=== PATIENT | male | born 1935 | race Caucasian/White ===

== ENCOUNTER → 2017-05-12 | Outpatient (CLI) | payer MEDICARE, OTHER ==
[~2017-05-12] MED LIST: ASPI1TAB57 PO; MULT-65 PO; TAMS5CAP PO
[2017-05-12 10:19] LABS: AUTOMATED NEUTROPHIL # 3.6 TH/MM3 (1.8-7.7); BASOPHIL % 0.4 % (0.0-2.0); EOSINOPHIL # 0.1 TH/MM3 (0-0.4); HEMATOCRIT 46.9 % (39.0-51.0); HEMOGLOBIN 15.7 GM/DL (13.0-17.0); LYMPH % 23.9 % (9.0-44.0); LYMPHOCYTE # 1.4 TH/MM3 (1.0-4.8); MEAN CELL VOLUME 89.7 FL (80.0-100.0); MEAN CORPUSCULAR HEMOGLOBIN 29.9 PG (27.0-34.0); MEAN CORPUSCULAR HGB CONC 33.3 % (32.0-36.0); MEAN PLATELET VOLUME 7.2 FL (7.0-11.0); MONO % 12.5 % (0.0-8.0); MONOCYTE # 0.7 TH/MM3 (0-0.9); NEUT % 62.2 % (16.0-70.0); PLATELET COUNT 222 TH/MM3 (150-450); RED BLOOD COUNT 5.23 MIL/MM3 (4.50-5.90); RED CELL DISTRIBUTION WIDTH 13.9 % (11.6-17.2); WHITE BLOOD COUNT 5.9 TH/MM3 (4.0-11.0)
[2017-05-12 10:24] LABS: BILIRUBIN, URINE NEG (NEG); BLOOD, URINE NEG (NEG); GLUCOSE,URINE NEG (NEG); HYALINE CAST, URINE 1 /lpf (RARE); KETONE, URINE NEG (NEG); NITRITE,URINE NEG (NEG); PH, URINE 5.5 (5.0-8.5); SQUAMOUS EPITHELIAL CELL URINE <1 /hpf (0-5); URINE COLOR YELLOW (YELLW/STRAW); URINE LEUKOCYTE ESTERASE NEG (NEG)
[2017-05-12 10:32] LABS: PROTHROMBIN TIME - PATIENT 10.2 SEC (9.8-11.6)
[2017-05-12 10:39] LABS: ALBUMIN 3.7 GM/DL (3.4-5.0); AST (GOT) 19 U/L (15-37); BICARBONATE 28.2 MEQ/L (21.0-32.0); BLOOD UREA NITROGEN 12 MG/DL (7-18); CALCIUM 9.1 MG/DL (8.5-10.1); CHLORIDE 104 MEQ/L (98-107); CREATININE 1.12 MG/DL (0.60-1.30); GLOMERULAR FILTRATION RATE 63 ML/MIN (>89); GLUCOSE,FASTING 96 MG/DL (74-99); SODIUM (NA) 141 MEQ/L (136-145)
[2017-05-12 10:45] LABS: ALKALINE PHOSPHATASE 109 U/L (45-117); ALT (GPT) 23 U/L (12-78); TOTAL BILIRUBIN ADULT 0.9 MG/DL (0.2-1.0); TOTAL PROTEIN 7.1 GM/DL (6.4-8.2)
--- NOTE | 2017-05-12 12:07 | RADRPT ---
EXAM DATE/TIME: 05/12/2017 09:59 [place] COMPARISON: No previous studies available for comparison. INDICATIONS : Evaluate for pneumonia, penumothorax, or communicable disease. Pre op for lower anterior resection. MEDICAL HISTORY : None. SURGICAL HISTORY : None. ENCOUNTER: Initial ACUITY: 1 day PAIN SCORE: 0/10 LOCATION: chest FINDINGS: PA and lateral views of the chest demonstrate the lungs to be symmetrically aerated without evidence of mass, infiltrate or effusion. There is hyperaeration bilaterally. There is some minimal platelike scarring versus atelectasis in the left lung base. The cardiomediastinal contours are unremarkable. Osseous structures are intact. CONCLUSION: 1. Minimal scarring versus atelectasis in the left lung base. 2. Otherwise, no focal or acute intrathoracic disease. Frantz Santiago MD on May 12, 2017 at 12:05 Board Certified Radiologist. This report was verified electronically.
--- NOTE | 2017-05-12 20:04 | EKG ---
Date Performed: 05/12/2017 Time Performed: 09:33:10 PTAGE: 81 years EKG: Sinus rhythm WITH OCCASIONAL SUPRAVENTRICULAR PREMATURE COMPLEXES BORDERLINE ECG NO PREVIOUS TRACING DOCTOR: Hunter Singh Interpretating Date/Time 05/12/2017 20:04:01
== END ==
LOC: CPRE 09:00
PROVIDERS: ATTEND Colon & Rectal Surgery
DX: Z01.810 Encounter for preprocedural cardiovascular examination (principal); Z01.811 Encounter for preprocedural respiratory examination; Z01.812 Encounter for preprocedural laboratory examination; Z01.818 Encounter for other preprocedural examination; Z79.01 Long term (current) use of anticoagulants; C18.7 Malignant neoplasm of sigmoid colon; R94.31 Abnormal electrocardiogram [ECG] [EKG]
CPT/HCPCS: 36415; 71046; 80053; 81001; 82378; 85025; 85610; 85730; 93005

== ENCOUNTER 2017-05-19 12:24 | Inpatient (IN) | payer MEDICARE, OTHER ==
[~2017-05-19] VITALS: Ht 182.9 cm; Wt 77.0 kg
[~2017-05-19 12:24] MED LIST changes: +DEXAMETHASONE SOD PHOS 4 MG/ML VIAL IV ONE; +GLYCOPYRROLATE 1 MG/5 ML SYRINGE IV PUSH ONE; +LACTATED RINGER'S 1000 ML INJ 1,000 ML IV ONE; +LIDOCAINE HCL 1% PF 5 ML SYRINGE OTHER ONE; +NEOSTIGMINE 5 MG/5 ML SYRINGE IV PUSH ONE; +ONDANSETRON HCL 4 MG/2 ML VIAL IV ONE; +PROPOFOL 200 MG/20 ML AMP IV ONE; +ROCURONIUM INJ 50 MG/5 ML SYRINGE IV PUSH ONE; +SODIUM CHLOR 0.9% 250 ML INJ 250 ML IV ONE; +ePHEDrine/NS 25 MG/5 ML SYRINGE IV ONE
[2017-05-19] MEDS ORDERED: DEXT 5%-NACL 0.9% 1000 ML INJ 1,000 ML IV SCH (13:00)
[2017-05-19] MEDS ORDERED: METRONIDAZOLE 500 MG/100 ML ISONTONIC SOLN IV SCH (13:00)
[2017-05-19] MEDS ORDERED: POVIDONE IODINE 5% (ANTISEPSIS KIT) 4 APPLICATIONS EACH NARE PRN (13:00)
[2017-05-19] MEDS ORDERED: CHLORHEXIDINE GLUCONATE 2 % 1 PACK (2 CLOTHS) TOPICAL PRN (13:00)
[2017-05-19] MEDS ORDERED: ceFAZolin 1,000 MG/NS 100 ML IV SCH ×2 (13:00)
[2017-05-19] MEDS ORDERED: ALVIMOPAN 12 MG CAPSULE - On Call PO SCH (13:00)
[2017-05-19] MEDS ORDERED: LACTATED RINGER'S 1000 ML IV PRN (13:00)
[2017-05-19] MEDS ORDERED: SODIUM CHLORID 0.9% 500 ML IV PRN (13:00)
[2017-05-19] MEDS ORDERED: METOPROLOL TARTRATE 25 MG TAB PO PRN (13:00)
[2017-05-19] MEDS ORDERED: ACETAMINOPHEN 1000 MG/100 ML 100 ML IV ONE (13:08)
[2017-05-19] MEDS ORDERED: KETAMINE HCL 500 MG/5 ML VIAL ONE (13:08)
[2017-05-19] MEDS ORDERED: MIDAZOLAM HCL 2 MG/2 ML VIAL ONE (13:08)
[2017-05-19] MEDS ORDERED: fentaNYL CITRATE 250 MCG/5 ML AMP ONE (13:33)
--- NOTE | 2017-05-19 13:57 | PD.HP.UP ---
H&P Update Note The Pre-Admit History and Physical Examination regarding the above named patient was reviewed (including, but not limited to, vital signs, heart, lungs, co-morbid conditions), and upon re-examination it is noted that: the patient's condition has not significantly changed since the last examination. Agapito Almeida MD May 19, 2017 13:57
--- NOTE | 2017-05-19 14:57 | PD.OP ---
Operative Report Date of Surgery: May 19, 2017 Preoperative Diagnosis: Colon cancer Postoperative Diagnosis: Same Procedure: Cystoscopy bilateral ureteral catheter placement Anesthesia: ALEYDA Surgeon: Carol Guevara Pharmacy Coordinator(s): None Resident Surgeon: None Operation and Findings: 81-year-old female with history of colon cancer with recurrence. Request for placement of bilateral ureteral catheters were made by Dr. Almeida. Patient was brought to the operating room and placed in dorsal lithotomy position. He was prepped and draped in usual sterile fashion and received preprocedure antibiotics general endotracheal tube anesthesia was administered. 22 Ukrainian cystoscope was inserted in the bladder sarkar cystoscopy did not reveal any abnormalities. The left ureteral orifice was identified and a 5 Ukrainian Demarcus catheter inserted in the left ureteral orifice that difficulty. This was repeated on the right side without difficulty. The Goldstein was then inserted and the catheters were attached a Goldstein. The patient tolerated the procedure well. Carlo Guevara DO May 19, 2017 14:57
[2017-05-19] MEDS ORDERED: BUPIVACAINE HCL PF 0.5% 30 ML VIAL ONE ×3 (15:45)
[2017-05-19] MEDS ORDERED: *MEPERIDINE 25 MG INJ VIAL PERIprocedural Use ONLY ONE (16:26)
[2017-05-19] MEDS ORDERED: *morphine SULFATE 4 MG/ML PERIprocedure ONLY ONE (16:27)
[2017-05-19] MEDS ORDERED: ENALAPRILAT 2.5 MG/2 ML VIAL IV PUSH PRN (16:30)
[2017-05-19] MEDS ORDERED: KETOROLAC TROMETHAMINE 30 MG/ML (IVP) VIAL IVP PRN (16:30)
[2017-05-19] MEDS ORDERED: NALOXONE HCL 0.4 MG/ML AMP IV PUSH PRN (16:30)
[2017-05-19] MEDS ORDERED: POTASSIUM CHLOR 40 MEQ PREMIX 100 ML IV-CENTRAL PRN (16:30)
[2017-05-19] MEDS ORDERED: Post-op Orders (for Pharmacy) XX ONE (16:30)
[2017-05-19] MEDS ORDERED: ACETAMINOPHEN/HYDROcodone 325 MG/5 MG TAB PO PRN (16:30)
[2017-05-19] MEDS ORDERED: ONDANSETRON HCL 4 MG/2 ML VIAL IV PUSH PRN (16:30)
[2017-05-19] MEDS ORDERED: POTASSIUM CHLOR 20 MEQ PREMIX 100 ML IV PRN (16:30)
[2017-05-19] MEDS ORDERED: BENZOCAINE 6 MG/MENTHOL 10 MG LOZENGE BUCCAL PRN (16:30)
[2017-05-19] MEDS ORDERED: ACETAMINOPHEN 325 MG TAB PO PRN (16:30)
[2017-05-19] MEDS ORDERED: METOCLOPRAMIDE HCL 10 MG/2 ML VIAL ONE (16:54)
[2017-05-19] MEDS: D5-NS + KCL 20 MEQ INJ 1,000 ML IV SCH ×2 (17:00→23:06)
[2017-05-19] MEDS: MORPHINE SULFATE 30 MG/30 ML PCA IV SCH (17:09)
[2017-05-19] MEDS ORDERED: MORPHINE SULFATE 4 MG/ML INJ ONE (17:25)
[2017-05-19] MEDS ORDERED: BUPIVACAINE HCL PF 0.5% 30 ML VIAL NB ONE (17:30)
[2017-05-19] MEDS ORDERED: DO NOT ADM ANY ANTICOAGULANT DRUGS PRN (17:45)
[2017-05-19] MEDS: METOCLOPRAMIDE HCL 10 MG/2 ML VIAL IVS SCH (20:18)
[2017-05-19] MEDS: PCA - TOTAL MG MORPHINE DELIVERED PER SHIFT SCH (22:00)
[2017-05-19 23:00] VITALS: BP 134/72; PULSE 88; RESP 16; TEMP 98.1; O2SAT 95
[2017-05-19] MEDS: TAMSULOSIN HCL 0.4 MG CAP PO SCH (23:04)
[2017-05-19] MEDS: metroNIDAZOLE 500 MG INJ 100 ML IV SCH (23:07)
[2017-05-20] VITALS (15 sets, daily range): BP systolic 112–185; BP diastolic 58–74; PULSE 61–83; RESP 16–20; TEMP 98.2–99.1; O2SAT 94–97
[2017-05-20] MEDS: D5-NS + KCL 20 MEQ INJ 1,000 ML IV SCH ×3 (04:26→21:31)
[2017-05-20 05:12] LABS: AUTOMATED NEUTROPHIL # 12.6 TH/MM3 (1.8-7.7); BASOPHIL % 0.1 % (0.0-2.0); HEMATOCRIT 43.8 % (39.0-51.0); HEMOGLOBIN 14.4 GM/DL (13.0-17.0); LYMPH % 2.3 % (9.0-44.0); LYMPHOCYTE # 0.3 TH/MM3 (1.0-4.8); MEAN CELL VOLUME 89.6 FL (80.0-100.0); MEAN CORPUSCULAR HEMOGLOBIN 29.5 PG (27.0-34.0); MEAN CORPUSCULAR HGB CONC 32.9 % (32.0-36.0); MONO % 9.1 % (0.0-8.0); MONOCYTE # 1.3 TH/MM3 (0-0.9); NEUT % 88.5 % (16.0-70.0); PLATELET COUNT 208 TH/MM3 (150-450); RED BLOOD COUNT 4.89 MIL/MM3 (4.50-5.90); RED CELL DISTRIBUTION WIDTH 13.5 % (11.6-17.2); WHITE BLOOD COUNT 14.2 TH/MM3 (4.0-11.0)
[2017-05-20 05:30] LABS: BICARBONATE 22.4 MEQ/L (21.0-32.0); CREATININE 1.18 MG/DL (0.60-1.30)
[2017-05-20] MEDS: PCA - TOTAL MG MORPHINE DELIVERED PER SHIFT SCH ×3 (06:00→21:27)
[2017-05-20] MEDS: metroNIDAZOLE 500 MG INJ 100 ML IV SCH ×2 (06:24→14:02)
--- NOTE | 2017-05-20 07:31 | HHI.PR ---
Subjective Remarks C/R Surg POD#1 afebrile, VSS UO good Objective - Vital Signs Date Time Temp Pulse Resp B/P (MAP) Pulse Ox O2 Delivery O2 Flow Rate FiO2 05/20/17 06:00 16 05/20/17 03:00 98.2 82 112/58 (76) 95 05/19/17 21:00 Nasal Cannula 2 Result Diagram: 05/20/17 0417 05/20/17 0417 Other Results PE alert Abdf - soft, wound dry, min tympany A/P Assessment and Plan Imp: stable post-op OOB decr IVF tx to floor Agapito Almeida MD May 20, 2017 07:31
[2017-05-20] MEDS: ALVIMOPAN 12 MG CAPSULE - Post-op dosing PO SCH ×2 (08:39→21:26)
[2017-05-20] MEDS: PANTOPRAZOLE SOD 40 MG DELAYED RELEASE TAB PO SCH (08:39)
[2017-05-20] MEDS: METOCLOPRAMIDE HCL 10 MG/2 ML VIAL IVS SCH ×2 (08:39→21:32)
[2017-05-20] MEDS: PANTOPRAZOLE SODIUM 40 MG VIAL IVP SCH (08:40)
[2017-05-20] MEDS ORDERED: ALVIMOPAN 12 MG CAPSULE PO SCH (21:00)
[2017-05-20] MEDS: TAMSULOSIN HCL 0.4 MG CAP PO SCH (21:26)
[2017-05-21] VITALS: BP 154/69; PULSE 83; RESP 20; TEMP 98.9; O2SAT 93
[2017-05-21 04:00] VITALS: BP 173/73; PULSE 88; RESP 20; TEMP 99.1; O2SAT 93
[2017-05-21] MEDS: PCA - TOTAL MG MORPHINE DELIVERED PER SHIFT SCH ×2 (04:37→14:00)
[2017-05-21] MEDS: ENALAPRILAT 1.25 MG/ML VIAL IV PUSH PRN (05:03)
[2017-05-21 07:47] LABS: AUTOMATED NEUTROPHIL # 10.1 TH/MM3 (1.8-7.7); BASOPHIL % 0.4 % (0.0-2.0); EOSINOPHIL # 0.1 TH/MM3 (0-0.4); EOSINOPHIL % 1.2 % (0.0-4.0); HEMATOCRIT 41.9 % (39.0-51.0); HEMOGLOBIN 14.1 GM/DL (13.0-17.0); LYMPH % 5.5 % (9.0-44.0); LYMPHOCYTE # 0.7 TH/MM3 (1.0-4.8); MEAN CELL VOLUME 90.2 FL (80.0-100.0); MEAN CORPUSCULAR HEMOGLOBIN 30.4 PG (27.0-34.0); MEAN CORPUSCULAR HGB CONC 33.7 % (32.0-36.0); MEAN PLATELET VOLUME 7.4 FL (7.0-11.0); MONO % 11.5 % (0.0-8.0); MONOCYTE # 1.4 TH/MM3 (0-0.9); NEUT % 81.4 % (16.0-70.0); PLATELET COUNT 183 TH/MM3 (150-450); RED BLOOD COUNT 4.65 MIL/MM3 (4.50-5.90); RED CELL DISTRIBUTION WIDTH 13.8 % (11.6-17.2); WHITE BLOOD COUNT 12.4 TH/MM3 (4.0-11.0)
[2017-05-21 08:00] VITALS: BP 146/69; PULSE 80; RESP 17; TEMP 100.4; O2SAT 95
[2017-05-21] MEDS: PANTOPRAZOLE SODIUM 40 MG VIAL IVP SCH (08:09)
[2017-05-21 08:29] LABS: BICARBONATE 24.5 MEQ/L (21.0-32.0); CALCIUM 8.1 MG/DL (8.5-10.1); CREATININE 1.17 MG/DL (0.60-1.30)
[2017-05-21] MEDS ORDERED: PNEUMOCOCCAL POLYVALENT INJ 25 MCG/0.5 ML SYR IM ONE (10:00)
[2017-05-21] MEDS: D5-NS + KCL 20 MEQ INJ 1,000 ML IV SCH ×2 (10:33→21:07)
[2017-05-21] MEDS: ALVIMOPAN 12 MG CAPSULE - Post-op dosing PO SCH ×2 (10:37→20:59)
[2017-05-21] MEDS: METOCLOPRAMIDE HCL 10 MG/2 ML VIAL IVS SCH ×2 (10:37→21:06)
[2017-05-21] MEDS: PANTOPRAZOLE SOD 40 MG DELAYED RELEASE TAB PO SCH (10:37)
[2017-05-21 12:00] VITALS: BP 167/77; PULSE 89; RESP 20; TEMP 98.1; O2SAT 95
--- NOTE | 2017-05-21 12:34 | HHI.PR ---
Subjective Remarks C/R Surg POD#2 afebrile, VSS UO good +flatus Objective - Vital Signs Date Time Temp Pulse Resp B/P (MAP) Pulse Ox O2 Delivery O2 Flow Rate FiO2 05/21/17 08:00 100.4 80 17 146/69 (94) 95 05/19/17 21:00 Nasal Cannula 2 Result Diagram: 05/21/17 0734 05/21/17 0734 Objective Remarks PE alert Abd - soft, wound dry, min tympany A/P Assessment and Plan Imp: OOB decr IVF adv diet Agapito Almeida MD May 21, 2017 12:34
[2017-05-21 16:00] VITALS: BP 159/74; PULSE 91; RESP 18; TEMP 98.7; O2SAT 95
[2017-05-21] MEDS: MORPHINE SULFATE 30 MG/30 ML PCA IV SCH (16:03)
[2017-05-21] MEDS: ACETAMINOPHEN/HYDROcodone 325 MG/5 MG TAB PO PRN (16:23)
[2017-05-21 20:00] VITALS: BP 142/74; PULSE 86; RESP 20; TEMP 98.7; O2SAT 94
[2017-05-21] MEDS: TAMSULOSIN HCL 0.4 MG CAP PO SCH (20:59)
[2017-05-22] VITALS: BP 181/81; PULSE 84; RESP 20; TEMP 98.9; O2SAT 92
[2017-05-22] MEDS: ENALAPRILAT 1.25 MG/ML VIAL IV PUSH PRN ×2 (00:07→19:57)
[2017-05-22 01:00] VITALS: BP 127/60
[2017-05-22 08:00] VITALS: BP 148/68; PULSE 81; RESP 19; TEMP 97.9; O2SAT 92
[2017-05-22] MEDS: ALVIMOPAN 12 MG CAPSULE - Post-op dosing PO SCH ×2 (08:53→19:47)
[2017-05-22] MEDS: PANTOPRAZOLE SODIUM 40 MG VIAL IVP SCH (08:54)
[2017-05-22] MEDS: METOCLOPRAMIDE HCL 10 MG/2 ML VIAL IVS SCH ×2 (08:54→19:48)
[2017-05-22] MEDS: PANTOPRAZOLE SOD 40 MG DELAYED RELEASE TAB PO SCH (08:54)
[2017-05-22 12:00] VITALS: BP 148/76; PULSE 80; RESP 19; TEMP 98.3; O2SAT 93
--- NOTE | 2017-05-22 12:34 | HHI.PR ---
Subjective Remarks POD#2 s/p colon resection Objective Vital Signs Date Time Temp Pulse Resp B/P (MAP) Pulse Ox O2 Delivery O2 Flow Rate FiO2 05/22/17 08:00 97.9 81 19 148/68 (94) 92 05/22/17 01:00 127/60 (82) 05/22/17 00:00 98.9 84 20 181/81 (114) 92 05/21/17 20:00 98.7 86 20 142/74 (96) 94 05/21/17 16:03 14 05/21/17 16:00 98.7 91 18 159/74 (102) 95 05/21/17 14:00 14 I/O 05/21/17 05/21/17 05/21/17 05/22/17 05/22/17 05/22/17 06:59 14:59 22:59 06:59 14:59 22:59 Intake Total 0 ml 1120 ml 480 ml 480 ml Output Total 1000 ml 1800 ml 1000 ml Balance -1000 ml 1120 ml -1320 ml -520 ml Intake Oral 0 ml 120 ml 480 ml 480 ml IV Total 1000 ml Output Urine Total 1000 ml 1800 ml 1000 ml # Bowel Movements 0 Result Diagram: 05/21/17 0734 05/21/17 0734 Objective Remarks Abdomen soft, nondistended, tender Wound clean Assessment and Plan Assessment and Plan Await bowel function Continue hoskins for hematuria s/p stents Mobilize Advance diet decrease IVF Dory Valdovinos MD May 22, 2017 12:34
[2017-05-22 15:48] VITALS: BP 151/70; PULSE 91; RESP 19; TEMP 98.3; O2SAT 93
[2017-05-22] MEDS: TAMSULOSIN HCL 0.4 MG CAP PO SCH (19:46)
[2017-05-22] MEDS: ACETAMINOPHEN/HYDROcodone 325 MG/5 MG TAB PO PRN (19:50)
[2017-05-22 20:00] VITALS: BP 175/84; PULSE 88; RESP 18; TEMP 100.2; O2SAT 97
[2017-05-23 00:20] VITALS: BP 153/74; PULSE 80; RESP 18; TEMP 98; O2SAT 96
[2017-05-23 08:00] VITALS: BP 149/79; PULSE 88; RESP 16; TEMP 98.2; O2SAT 93
[2017-05-23] MEDS: ALVIMOPAN 12 MG CAPSULE - Post-op dosing PO SCH (08:16)
[2017-05-23] MEDS: PANTOPRAZOLE SOD 40 MG DELAYED RELEASE TAB PO SCH (08:16)
[2017-05-23] MEDS: PANTOPRAZOLE SODIUM 40 MG VIAL IVP SCH (08:16)
[2017-05-23] MEDS: METOCLOPRAMIDE HCL 10 MG/2 ML VIAL IVS SCH (08:30)
[2017-05-23] MEDS ORDERED: FUROSEMIDE 20 MG/2 ML VIAL IV PUSH SCH (09:00)
[2017-05-23 12:00] VITALS: BP 141/71; PULSE 96; RESP 16; TEMP 98.4; O2SAT 92
--- NOTE | 2017-05-23 12:39 | HHI.PR ---
Subjective Remarks POD#3 s/p colon resection Objective Vital Signs Date Time Temp Pulse Resp B/P (MAP) Pulse Ox O2 Delivery O2 Flow Rate FiO2 05/23/17 08:00 98.2 88 16 149/79 (102) 93 05/23/17 00:20 98.0 80 18 153/74 (100) 96 05/22/17 20:00 100.2 88 18 175/84 (114) 97 05/22/17 15:48 98.3 91 19 151/70 (97) 93 I/O 05/22/17 05/22/17 05/22/17 05/23/17 05/23/17 05/23/17 07:00 15:00 23:00 07:00 15:00 23:00 Intake Total 480 ml 300 ml 580 ml Output Total 1000 ml 1200 ml 1200 ml Balance -520 ml -900 ml -620 ml Intake Oral 480 ml 300 ml 580 ml Output Urine Total 1000 ml 1200 ml 1200 ml # Bowel Movements 0 Result Diagram: 05/21/17 0734 05/21/17 0734 Objective Remarks Abdomen soft, nondistended, tender Wound clean Assessment and Plan Assessment and Plan Doing well Tolerating diet, moving bowels D/C Goldstein Home today Followup 2 weeks Dory Valdovinos MD May 23, 2017 12:39
[2017-05-23] MEDS ORDERED: HYDR-3516 PO (12:41)
[2017-05-23] MEDS ORDERED: WALKER WHEELS/F1 MIS ×4 (15:34→15:40)
[2017-05-23 16:00] VITALS: BP 152/77; PULSE 84; RESP 16; TEMP 98.9; O2SAT 92
--- NOTE | 2017-06-04 18:20 | MP ---
cc: Agapito Almeida MD DATE OF OPERATION: 05/19/2017 PREOPERATIVE DIAGNOSES: 1. Carcinoma of the descending colon. 2. History of carcinoma of the rectosigmoid. PROCEDURE PERFORMED: Exploratory laparotomy with segmental descending colectomy. POSTOPERATIVE DIAGNOSES: 1. Carcinoma of the descending colon. 2. History of carcinoma of the rectosigmoid. SURGEON: Agapito Almeida MD SSIS SSRS DEVELOPER: Tomi Varma MD DESCRIPTION OF PROCEDURE: The patient was placed in the supine position. After adequate general anesthesia, his legs were placed in the universal stirrups and supported appropriately. The abdomen and perineum were then prepped with Betadine solution and draped in usual sterile fashion. With Dr. Varma's assistance the abdomen was opened through the previous transverse incision, dividing the remaining rectus muscles with electrocautery. Entering the abdominal cavity, there were surprisingly few adhesions with only a little bit of omental adhesions to the parietal peritoneum. These were taken down sharply. Exploration revealed the previous low anterior resection anastomotic site to be way down the pelvis. There was some omentum wrapped around the left gutter toward the pelvis. Tumor was palpated in the descending colon about 2 or 3 cm in size and rather firm. There was just very little serosal puckering. The liver and gallbladder were pretty unremarkable. No other evidence of metastatic disease was seen in the abdomen. The small bowel was run from the ligament of Treitz to the ileocecal valve and felt to be normal. The left colon was mobilized medially by dividing along the white line of Toldt. The left ureteral stent was easily palpated and preserved. Dissection the proceeded up taking down attachments to what was the splenic flexure area and mobilizing the entire descending colon. Dissection proceeded down to the pelvis, mobilizing the bowel off the retroperitoneum. After full mobilization, it became evident a segmental resection with the blood supply would not be possible due to the previous low anterior resection due to devascularization of the distal segment. Resecting the bowel down to the previous anastomosis would also be somewhat difficult and would leave him with a coloanal or possibly a permanent colostomy. After reviewing alternatives, it was felt best to do a limited resection around the tumor, since it was very small and less than 2 cm in size leaving the blood supply to the colon. This was done by creating an avascular plane proximal and distal to the tumor with adequate margins. The bowel was then taken off the mesentery, preserving the marginal artery in the region of the dissection. Small vessels were cauterized and larger vessels tied with Vicryl ligatures. Bowel continuity was then restored by firing of the GI stapler across the antimesenteric ends of the bowel, closing the enterotomy with a TA 60 stapler. Small mesenteric defect closed with #1 Vicryl suture and a 3-0 Vicryl crotch suture was placed as well. The bowel returned to the abdominal cavity. Adequate hemostasis was achieved. The omentum was left in the left gutter reaching down into the pelvis. A transverse incision was then closed, anatomically in 2 layers using #1 PDS sutures to reapproximate the respective fascial layers. Subcutaneous tissue was irrigated copiously and the skin closed with a running subcuticular Vicryl suture. The wound area washed with normal saline and dried, sterile dressing of Telfa and gauze applied. The patient tolerated the procedure quite well and was brought to the recovery room in stable condition. Sponge and needle counts were correct at the end of the procedure. MD ANGELA Ortiz/MAI , 05:53 PM , 06:19 PM
== END 2017-05-23 17:13 | disposition home or self-care (01) | DRG 331 ==
LOC: HSDI 12:24 → HCPC 21:43 → N07A 05-20 18:46
PROVIDERS: ADMIT Colon & Rectal Surgery; ATTEND Colon & Rectal Surgery
PROC: 0DQV0ZZ Repair Mesentery, Open Approach (ICD-10-PCS; 2017-05-19)
PROC: 0T9880Z Drainage of Bilateral Ureters with Drainage Device, Via Natural or Artificial Opening Endoscopic (ICD-10-PCS; principal; 2017-05-19 14:18)
PROC: 0DBM0ZZ Excision of Descending Colon, Open Approach (ICD-10-PCS; 2017-05-19 14:18)
DX: C18.6 Malignant neoplasm of descending colon (principal); R31.9 Hematuria, unspecified; Z90.49 Acquired absence of other specified parts of digestive tract; Z85.048 Personal history of other malignant neoplasm of rectum, rectosigmoid junction, and anus; Z23 Encounter for immunization
CPT/HCPCS: 80048; 85025; 86850; 86900; 86901; 88309; 94150; J0131; J0690; J1100; J1885; J1940; J2175; J2250; J2270; J2405; J2710; J2765; J3010; J3480; J7050; J7120